=== PATIENT | male | born 1950 | race Caucasian/White ===

== ENCOUNTER → 2020-09-15 | Outpatient (CLI) | payer OTHER | LOC: KOH-I 08:59 | DX: Z13.6 Encounter for screening for cardiovascular disorders (principal); Z82.49 Family history of ischemic heart disease and other diseases of the circulatory system; F17.210 Nicotine dependence, cigarettes, uncomplicated; I77.811 Abdominal aortic ectasia | CPT/HCPCS: 76706-PO ==

== ENCOUNTER → 2020-10-01 | Outpatient (CLI) | payer OTHER | LOC: RAD 11:12 | DX: R04.2 Hemoptysis (principal); R91.8 Other nonspecific abnormal finding of lung field | CPT/HCPCS: 71046 ==

== ENCOUNTER → 2021-05-31 | Outpatient (CLI) | payer OTHER | LOC: KOH-I 09:37 | DX: F17.210 Nicotine dependence, cigarettes, uncomplicated (principal) | CPT/HCPCS: 71271 ==